=== PATIENT | male | born 1980 | race Caucasian/White ===

== ENCOUNTER 2023-07-17 15:08 | Emergency (ER) | payer MEDICAID ==
[~2023-07-17] VITALS: Ht 180.3 cm; Wt 81.6 kg
[2023-07-17 15:11] VITALS: BP 128/80; PULSE 100; RESP 16; TEMP 98.2; O2SAT 100
== END 2023-07-17 18:12 | disposition left against medical advice (07) ==
LOC: ER 15:08
DX: M25.562 Pain in left knee (principal); Z53.21 Procedure and treatment not carried out due to patient leaving prior to being seen by health care provider
CPT/HCPCS: 73560; 99281; 99283

== ENCOUNTER 2025-05-25 02:35 | Emergency (ER) | payer MEDICAID ==
[~2025-05-25] VITALS: Ht 170.2 cm; Wt 80.0 kg
[2025-05-25 02:44] VITALS: TEMP 36.9; O2SAT 98
[2025-05-25] MEDS ORDERED: IBUP-2029 MT (03:10)
[2025-05-25] MEDS ORDERED: SULF1TAB48 MT (03:10)
[2025-05-25] MEDS ORDERED: CEPH500C2 MT (03:10)
[2025-05-25 03:33] VITALS: O2SAT 99
[2025-05-25 03:36] VITALS: BP 126/81; PULSE 80; RESP 14
[2025-05-25] MEDS: CEPHALEXIN 250MG CAPSULE PO ONE (03:36)
[2025-05-25] MEDS: IBUPROFEN 600MG TABLET PO ONE (03:36)
[2025-05-25] MEDS: SULFAMETHOXAZOLE/TRIMETHOPRIM 800/160MG TABLET PO ONE (03:36)
== END 2025-05-25 03:38 | disposition home or self-care (01) ==
LOC: ER 02:35
DX: L03.113 Cellulitis of right upper limb (principal); Z79.899 Other long term (current) drug therapy
CPT/HCPCS: 99284